=== PATIENT | male | born 1950 | race Caucasian/White ===

== ENCOUNTER → 2019-02-18 | Outpatient (CLI) | payer MEDICARE ==
[~2019-02-18] MED LIST: A-CILLIN500 MG PO; ACIPHEX20 MG PO; Aciphex20 MG PO; DELTASONE20 MG PO; EPI-PEN1 MG/ML IM; FLAGYL500 MG PO; HIBICLENS118 ML T; NORCO 5-325 TA1 EACH PO; PEPCID20 MG PO; PRILOSEC OTC20 MG PO; SEPTDS PO; VICODIN ES 7501 TAB PO; ZYVOX600 MG PO
== END | disposition home or self-care (01) ==
LOC: CARD 13:32
DX: I51.7 Cardiomegaly (principal)

== ENCOUNTER 2019-05-07 12:58 | Emergency (ER) | payer MEDICARE ==
[~2019-05-07] VITALS: Ht 177.8 cm; Wt 97.5 kg
[~2019-05-07 12:58] MED LIST changes: -HIBICLENS118 ML T; -NORCO 5-325 TA1 EACH PO; -SEPTDS PO; -ZYVOX600 MG PO
[2019-05-07] MEDS ORDERED: SEPTDS PO (13:29)
[2019-05-13] MEDS ORDERED: ZYVOX600 MG PO (13:52)
[2019-05-13] MEDS ORDERED: HIBICLENS118 ML T (14:34)
[2019-05-14] MEDS ORDERED: NORCO 5-325 TA1 EACH PO (11:36)
== END 2019-05-07 13:33 | disposition home or self-care (01) ==
LOC: ED 12:58
DX: L08.9 Local infection of the skin and subcutaneous tissue, unspecified (principal); M79.642 Pain in left hand; Z79.899 Other long term (current) drug therapy

== ENCOUNTER → 2019-05-28 | Outpatient (CLI) | payer MEDICARE ==
[~2019-05-28] MED LIST changes: +HIBICLENS118 ML T; +NORCO 5-325 TA1 EACH PO; +SEPTDS PO; +ZYVOX600 MG PO
[2019-05-28 09:20] LABS: BASO # 0.1 10*3/uL (0.0-0.1); BASO % 1.9 % (0.0-1.0); EOS # 0.2 10*3/uL (0.0-0.4); HEMOGLOBIN 14.2 g/dl (14.0-18.0); LYMPH # 1.3 10*3/uL (1.3-4.4); LYMPH % 35.6 % (27.0-41.0); MEAN CELL VOLUME 87.2 fl (80.0-94.0); MEAN CORPUSCULAR HGB 30.2 pg (27.0-31.0); MEAN CORPUSCULAR HGB CONC 34.6 g/dl (33.0-37.0); MONO # 0.5 10*3/uL (0.1-1.0); MONO % 13.7 % (3.0-9.0); NEUT # 1.7 10*3/uL (2.3-7.9); NEUT % 44.5 % (47.0-73.0); PLATELET COUNT AUTOMATED 215 10*3/uL (130-400); RED CELL DISTRI WIDTH 12.4 % (0-14.5); WHITE BLOOD COUNT 3.7 10*3/uL (4.8-10.8)
== END | disposition home or self-care (01) ==
LOC: ORTHO 02:30
PROVIDERS: Orthopaedic Surgery
DX: L02.512 Cutaneous abscess of left hand (principal)

== ENCOUNTER → 2019-05-29 | Outpatient (CLI) | payer MEDICARE | END | disposition home or self-care (01) | LOC: MRI 08:12 | DX: L02.512 Cutaneous abscess of left hand (principal); M19.042 Primary osteoarthritis, left hand; M79.89 Other specified soft tissue disorders ==

== ENCOUNTER → 2022-09-04 | Outpatient (CLI) | payer MEDICARE | END | disposition home or self-care (01) | LOC: US 11:00 | PROVIDERS: ATTEND Orthopaedic Surgery | DX: Z47.1 Aftercare following joint replacement surgery (principal); M25.561 Pain in right knee; M79.604 Pain in right leg; R60.0 Localized edema ==

== ENCOUNTER → 2022-10-11 | Outpatient (CLI) | payer MEDICARE | END | disposition home or self-care (01) | LOC: RAD 08:35 | PROVIDERS: ATTEND Orthopaedic Surgery | DX: Z09 Encounter for follow-up examination after completed treatment for conditions other than malignant neoplasm (principal); M25.461 Effusion, right knee; Z96.651 Presence of right artificial knee joint ==